=== PATIENT | male | born 1970 ===

== ENCOUNTER 2019-07-26 14:57 | Emergency (ER) | payer OTHER ==
--- OUTSIDE RECORDS SUMMARY | 2019-07-26 15:05 | XMS REPORT | Summary of Care ---
:1970 Author Organization [facility] Address 1 [facility] [place] [address] Care Team Providers Name Role Phone Duy Weber Ángela Primary Care Provider Reason for Visit Reason Comments Follow Up 2 wk f/u left knee. Patient states that the left knee is still painful. Patient states that the injection helped, although, the pain came back last week. Encounter Details Date Type Department Care Team Description 06/26/2019 Office Visit [facility] Aviva Fabian, Primary osteoarthritis - [place] RPA-C of left knee (Primary [address] 10 [facility] Dx) [address] [place] [address] [place] [address] [phone] Allergies No Known Allergiesdocumented as of this encounter (statuses as of 06/26/2019) Medications Medication Sig Dispensed Refills Start Date End Date Status ibuprofen (MOTRIN) Take 800 mg by mouth 0 Active 800 MG Oral DAILY. Indications: TabIndications: pt pt takin 1200 mg takin 1200 mg daily daily fluticasone-salmeter Take 1 INHL by 1 Inhaler 5 02/24/2018 Active ol diskus (ADVAIR inhalation TWICE DISKUS) 250-50 DAILY. MCG/DOSE Inhalation AEROSOL POWDER, BREATH ACTIVATED albuterol HFA Take 2 Puffs by 5 Inhaler 3 08/29/2018 Active (VENTOLIN) 108 (90 inhalation EVERY Base) MCG/ACT FOUR HOURS Inhalation Aero Soln NEEDED (cough). amLodipine (NORVASC) TAKE 1 TABLET DAILY 90 Tab 3 11/03/2018 Active 5 MG Oral Tab gabapentin Take 1-2 Caps by 120 Cap 3 11/17/2018 Active (NEURONTIN) 300 MG mouth TWICE DAILY. Oral Cap documented as of this encounter (statuses as of 06/26/2019) Active Problems Problem Noted Date Primary osteoarthritis of left knee 06/26/2019 Sciatica of left side 05/19/2018 Tear of medial meniscus of right knee, current, subsequent encounter 2017 Current tear of lateral cartilage or meniscus of knee 12/14/2017 Left wrist pain 04/28/2017 Essential hypertension 03/09/2017 Traumatic tear of medial meniscus of right knee 02/22/2017 Tear of medial meniscus of left knee, current 01/29/2017 Traumatic tear of medial meniscus of left knee 01/18/2017 Left elbow pain 12/29/2016 Chronic pain of left knee 12/29/2016 Lateral epicondylitis of left elbow 12/29/2016 BMI 30.0-30.9,adult 11/22/2012 Overview: sustained wt reduction with portion control and sustained routine exercise. Set realistic goal of 1# wt reduction /week set 10 week goals. Tobacco use disorder 12/15/2006 Overview: Began age 12 Moderate persistent asthma without complication 12/15/2006 Overview: pfts done 1990s [facility] Other tear of cartilage or meniscus of knee, current 03/31/2005 documented as of this encounter (statuses as of 06/26/2019) Resolved Problems Problem Noted Date Resolved Date Thigh pain, musculoskeletal, left 03/08/2018 11/17/2018 Acute pain of left knee 12/29/2016 03/09/2017 Sprain of lumbar region 08/03/2012 09/04/2016 Sprain of sacrum 07/27/2012 09/04/2016 Multiple sclerosis 12/15/2006 07/31/2010 Overview: Dx approx 20 years ago documented as of this encounter (statuses as of 06/26/2019) Immunizations Name Administration Dates Next Due Depo Medrol (40mg) 12/30/2009 documented as of this encounter Social History Tobacco Use Types Packs/Day Years Used Date Current Every Day Smoker Cigarettes 1 25 Smokeless Tobacco: Former User Chew Comments: 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 Sex Assigned at Date Recorded Not on file Job Start Date Occupation Industry Not on file Not on file Not on file Travel History Travel Start Travel End No recent travel history available. documented as of this encounter Last Filed Vital Signs Vital Sign Reading Time Taken Comments Blood Pressure 140/87 06/26/2019 8:13 AM EST Pulse 87 06/26/2019 8:13 AM EST Temperature - - Respiratory Rate - - Oxygen Saturation - - Inhaled Oxygen Concentration - - Weight 111.1 kg (245 lb) 06/26/2019 8:13 AM EST Height 180.3 cm (5' 11") 06/26/2019 8:13 AM EST Body Mass Index 34.17 06/26/2019 8:13 AM EST documented in this encounter Progress Notes Aviva Fabian RPA-C - 06/26/2019 8:15 AM EST Name: Daniel Mata : 1970 Date of Service: 06/26/2019 Referring Provider: Aviva Fabian Primary Care Provider: Duy Weber Chief Complaint Patient presents with Follow Up 2 wk f/u left knee. Patient states that the left knee is still painful. Patient states that the injection helped, although, the pain came back last week. History of Present Illness: Daniel Mata is a 48-y.o. male who presents for a follow up of his Left knee pain.The patient states they are doing fairly well. Received a cortisone injection at his last visit . States it did help some. Pain still there, but better. 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 Lazcano, partial menisectomy IN FEMUR/KNEE SURG UNLISTED Left 06/23/2017 Dr. Lazcano IN KNEE SCOPE,MED/LAT MENISECTOMY Right 02/02/2018 Procedure: ARTHROSCOPY KNEE/RIGHT KNEE MEDIAL MENISCUS TEAR Last case of the day.; Surgeon: Lalo Lazcano MD; Location: [facility] MAIN OR TONSILLECTOMY Current Outpatient Medications Medication Sig albuterol HFA (VENTOLIN) 108 (90 Base) MCG/ACT Inhalation Aero Soln Take 2 Puffs by inhalation EVERY FOUR HOURS NEEDED (cough). amLodipine (NORVASC) 5 MG Oral Tab TAKE 1 TABLET DAILY fluticasone-salmeterol diskus (ADVAIR DISKUS) 250-50 MCG/DOSE Inhalation AEROSOL POWDER, BREATH ACTIVATED Take 1 INHL by inhalation TWICE DAILY. gabapentin (NEURONTIN) 300 MG Oral Cap Take 1-2 Caps by mouth TWICE DAILY. ibuprofen (MOTRIN) 800 MG Oral Tab Take 800 mg by mouth DAILY. Indications: pt takin 1200 mg daily No current facility-administered medications for this visit. . 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 Drug use: No Sexual activity: Yes Partners: Female Lifestyle Physical activity: Days per week: Not on file Minutes per session: Not on file Stress: Not on file Relationships Social connections: Talks on phone: Not on file Gets together: Not on file Attends taoism service: Not on file Active member of club or organization: Not on file Attends meetings of clubs or organizations: Not on file Relationship status: Not on file Intimate partner violence: Fear of current or ex partner: Not on file Emotionally abused: Not on file Physically abused: Not on file Forced sexual activity: Not on file Other Topics Concern Back Care Not Asked Bike Helmet Not Asked Blood Transfusions No Caffeine Concern Not Asked Exercise Not Asked Comment: 2mile run sits ups/push ups Hobby Hazards Not Asked International Travel Not Asked Service Not Asked Occupational Exposure Not Asked Seat Belt Not Asked Self-Exams Not Asked Sleep Concern Not Asked Special Diet Not Asked Stress Concern Not Asked Weight Concern Not Asked Social History Narrative . 4 children. 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 Pets: dogs. Family History Problem Relation Age of Onset Breast Cancer Mother Cirrhosis Father Physical Examination: BP 140/87 | Pulse 87 | Ht 5' 11" (1.803 m) | Wt 245 lb (111.1 kg) | BMI 34.17 kg/m Patient was examined in the supine position. He has a Negative effusion. Patient has extension 0, flexion 120. Patient has tenderness on palpation of the medial joint line. Patient has not tenderness on palpation of the lateral joint line. Patient walks without an antalgic gait with respect to the Left extremity. X-Ray: No new xray's were obtained today. Impression: 1. Primary osteoarthritis of left knee Plan: He has done physical therapy and had a cortisone injection. Will seek approval for 3 Euflexxainjections for the left knee. All questions were answered today. Follow up: Author: AUGUSTINE Tran 06/26/2019 09:04 documented in this encounter Plan of Treatment Health Maintenance Due Date Last Done Comments PNEUMOCOCCAL 0-64 YRS (1 of 1976 1 - PPSV23) DEPRESSION SCREENING 09/07/2018 09/07/2017 DIABETES SCREENING 12/13/2019 12/12/2018, 09/04/2016, 09/04/2016, Additional history exists LIPID DISORDER SCREENING 12/13/2019 12/12/2018, 09/04/2016, 07/31/2010, Additional history exists HPV IMMUNIZATION SERIES Aged Out No longer eligible based on patient's age to complete this topic MENINGOCOCCAL VACCINE IMM Aged Out No longer eligible based on patient's age to complete this topic documented as of this encounter Goals Goal Patient Goal Associated Recent Patient-Stated? Author Type Problems Progress Blood Pressure Blood Pressure 140/87 No Tia, < 140/90 (06/26/2019 Duy Motta, 8:13 AM EST) Note: This is an individualized treatment (blood pressure) goal for Daniel Mata: Displayed above (on the left) is your goal for blood pressure control. Your most recent blood pressure is also shown above, on the right. You should try to achieve blood pressures that are lower than your goal listed above (on the left). Smoking Cessation COPD Duy Menjivar MD Note: This is an individualized treatment (COPD) goal for Daniel Mata: Quit smoking immediately! Your provider has information and resources that may help you to quit. Keep immunizations current Lifestyle Duy Menjivar MD Note: This is an individualized lifestyle goal for Daniel Mata: Please be sure to keep up-to-date on recommended immunizations. For example, this would include a yearly influenza vaccine. Immunization status can be seen by looking at the Health Maintenance sections of your e[facility], Plan of Care, and any After Visit Summaries. Weight loss vs. 18 mo Lifestyle 13 (06/26/2019 8:13 AM Duy Menjivar MD max (lbs) >= 10 EST) Note: This is an individualized lifestyle goal for Daniel Mata: Your body mass index (BMI) is more than 30. You should lose weight. A reasonable starting goal is to lose 10 pounds. Displayed above is how many pounds you have lost thus far towards your 10 pound weight loss goal. Take all prescribed medications as Self-management Duy Menjivar MD directed Note: This is an individualized self-management goal for Daniel Mata: Please take all prescribed medications as directed. 1. Do not skip doses. If you cannot afford your medications, talk with your doctor. 2. Use a pill reminder system such as a pill box if needed. Your pharmacist can help you with this. 3. Contact your Pharmacy 5 days before your medication runs out. If you cannot take your medications for any reasons, talk with your doctor. 4. Please bring all of your medication bottles and inhalers (or a list of all your medications/inhalers) with you to every visit. Potential barriers to meeting all of your care plan goals will continue to be addressed on an ongoing basis. documented as of this encounter Results Not on filedocumented in this encounter Visit Diagnoses Diagnosis Primary osteoarthritis of left knee - Primary Primary localized osteoarthrosis, lower leg documented in this encounter Guarantor Name Account Type Relation to Date of Phone Billing Address Patient Daniel Mata Personal/Famil 1970 [address] [facility] (Home) [phone] [place], [place] (Work) [address] documented as of this encounter Advance Directives Code Status Date Activated Date Inactivated Comments Full Code 02/10/2017 9:11 AM 02/10/2017 1:41 PM Does patient have decision making capacity? yes Order discussed with: Patient I discussed all options and patient/surrogate requested and agreed to: Full Code
--- OUTSIDE RECORDS SUMMARY | 2019-07-26 15:05 | XMS REPORT | Summary of Care ---
:1970 Author Organization [facility] Address 1 [facility] [place] [address] Care Team Providers Name Role Phone Duy Weber Ángela Primary Care Provider Reason for Visit Reason Comments Follow Up #1 Euflexxa left knee. Encounter Details Date Type Department Care Team Description 07/18/2019 Office Visit [facility] Aviva Fabian, Primary osteoarthritis - [place] RPA-C of left knee (Primary [address] Dx) [address] [place] [address] [place] [address] [phone] Allergies No Known Allergiesdocumented as of this encounter (statuses as of 07/18/2019) Medications Medication Sig Dispensed Refills Start Date [...] 300 MG mouth TWICE DAILY. Oral Cap Hospital, Clinic, or Other Ordered Dose Route Frequency Start Date End Date Status Facility Administered Medication Sodium Hyaluronate 20 2 mL IX Q7DAYS 07/18/2019 08/08/2019 Active MG/2ML SOSY (Ordered as: EUFLEXXA)Indications: Osteoarthritis of the Knee documented as of this encounter (statuses as of 07/18/2019) Active Problems Problem Noted Date Primary osteoarthritis [...] without complication 12/15/2006 Overview: pfts done 1990s [facility] Other tear of cartilage or meniscus of knee, current 03/31/2005 documented as of this encounter (statuses as of 07/18/2019) Resolved Problems Problem Noted Date Resolved Date Thigh pain, musculoskeletal, left 03/08/2018 11/17/2018 Acute pain of left knee 12/29/2016 03/09/2017 Sprain of lumbar region 08/03/2012 09/04/2016 Sprain of sacrum 07/27/2012 09/04/2016 Multiple sclerosis 12/15/2006 07/31/2010 Overview: Dx approx 20 years ago documented as of this encounter (statuses as of 07/18/2019) Immunizations Name Administration Dates Next Due Depo [...] Sign Reading Time Taken Comments Blood Pressure 131/86 07/18/2019 9:11 AM EST Pulse 84 07/18/2019 9:11 AM EST Temperature - - Respiratory Rate - - Oxygen Saturation - - Inhaled Oxygen Concentration - - Weight 111.1 kg (245 lb) 07/18/2019 9:11 AM EST Height 180.3 cm (5' 11") 07/18/2019 9:11 AM EST Body Mass Index 34.17 07/18/2019 9:11 AM EST documented in this encounter Progress Notes Aviva Fabian RPA-C - 07/18/2019 9:15 AM EST PATIENT:Daniel Mata : 1970 DATE OF SERVICE: 07/18/2019 CHIEF COMPLAINT: Euflexxa injection number 1 of 3, left knee. The patients left knee was sprayed with ethyl chloride and prepped with betadine. 2 ml of Euflexxa was injected under the superior aspect of the left patella. The patient tolerated the procedure well without complications. The wound was dressed with a band aid. IMPRESSION: ICD-9-CM ICD-10-CM 1. Primary osteoarthritis of left knee 715.16 M17.12 1. DJD left knee. 2. Euflexxa injection number 1 of 3 left knee. PLAN: Patient will follow up weekly for remaining injections. AUTHOR: AUGUSTINE Tran 07/18/2019 documented in this encounter Plan of Treatment Date Type Specialty Care Team Description 07/25/2019 Office [facility] RPA-C [address] [place] [address] [phone] 08/01/2019 Office Visit [facility] Fabian, RPA-C [address] [place] [address] [phone] Name Type Priority Associated Diagnoses Order Schedule INJECTION, JOINT Procedures Routine Primary osteoarthritis of Ordered: SHOUDLER HIP KNEE OR left knee BURSA Health Maintenance Due Date Last Done Comments [...] Type Problems Progress Blood Pressure Blood Pressure 131/86 No [place], < 140/90 (07/18/2019 Duy Motta, 9:11 AM EST) Note: This is an individualized [...] Weight loss vs. 18 mo Lifestyle 13 (07/18/2019 9:11 AM Duy Menjivar MD max (lbs) >= [...] osteoarthrosis, lower leg documented in this encounter Administered Medications Medication Order MAR Action Action Date Dose Rate Site Sodium Hyaluronate 20 MG/2ML Given 07/18/2019 9:19 AM EST 2 mL Knee - Left SOSY (Ordered as: EUFLEXXA) 2 mL, Intra-articular, Q7DAYS, 3 doses, First dose on Wed07/18/19 at 1020, Last dose on Wed08/01/19 at 1020 documented in this encounter Guarantor Name Account Type Relation to Date of Phone Billing Address Patient Daniel Mata Personal/Famil 1970 [phone] [address] [facility] (Home) [address] [phone] [place], [place] (Work) [address] documented as of this encounter Advance Directives Code Status Date Activated Date Inactivated Comments Full Code 02/10/2017 9:11 AM 02/10/2017 1:41 PM Does patient have decision making capacity? yes Order discussed with: Patient I discussed all options and patient/surrogate requested and agreed to: Full Code
--- OUTSIDE RECORDS SUMMARY | 2019-07-26 15:05 | XMS REPORT | Summary of Care ---
:1970 Author Organization [facility] Address 1 [facility] [place] [address] Care Team Providers Name Role Phone Duy Weber Ángela Primary Care Provider Reason for Visit Reason Comments Injection Patient here for #2 euflexxa left knee. Encounter Details Date Type Department Care Team Description 07/25/2019 Office Visit [facility] Aviva Fabian, Primary osteoarthritis - [place] RPA-C of left knee (Primary [address] Dx) [address] [place] [address] [place] [address] [phone] Allergies No Known Allergiesdocumented as of this encounter (statuses as of 07/25/2019) Medications Medication Sig Dispensed Refills Start Date [...] as of this encounter (statuses as of 07/25/2019) Active Problems Problem Noted Date Primary osteoarthritis [...] asthma without complication 12/15/2006 Overview: pfts done [address] [place] [address] Other tear of cartilage or meniscus of knee, current 03/31/2005 documented as of this encounter (statuses as of 07/25/2019) Resolved Problems Problem Noted Date Resolved Date Thigh pain, musculoskeletal, left 03/08/2018 11/17/2018 Acute pain of left knee 12/29/2016 03/09/2017 Sprain of lumbar region 08/03/2012 09/04/2016 Sprain of sacrum 07/27/2012 09/04/2016 Multiple sclerosis 12/15/2006 07/31/2010 Overview: Dx approx 20 years ago documented as of this encounter (statuses as of 07/25/2019) Immunizations Name Administration Dates Next Due Depo [...] Sign Reading Time Taken Comments Blood Pressure - - Pulse - - Temperature - - Respiratory Rate - - Oxygen Saturation - - Inhaled Oxygen Concentration - - Weight 111.1 kg (245 lb) 07/25/2019 9:03 AM EST Height 180.3 cm (5' 11") 07/25/2019 9:03 AM EST Body Mass Index 34.17 07/25/2019 9:03 AM EST documented in this encounter Progress Notes Aviva Fabian RPA-C - 07/25/2019 9:15 AM EST PATIENT:Daniel Mata : 1970 DATE OF SERVICE: 07/25/2019 CHIEF COMPLAINT: Euflexxa injection number 2 of 3, left knee. The patients left knee was sprayed with ethyl chloride and prepped with betadine. 2 ml of Euflexxa was injected under the superior aspect of the left patella. The patient tolerated the procedure well without complications. The wound was dressed with a band aid. IMPRESSION: ICD-9-CM ICD-10-CM 1. Primary osteoarthritis of left knee 715.16 M17.12 INJECTION, JOINT SHOUDLER HIP KNEE OR BURSA 1. DJDleft knee. 2. Euflexxa injection number2 of 3 left knee. PLAN: Patient will follow up weekly for remaining injections. AUTHOR: AUGUSTINE Tran 07/25/2019 documented in this encounter Plan of Treatment Date Type Specialty Care Team Description 08/01/2019 Office Visit [facility] Fab[facility] RPA-C [address] [place] [address] [phone] Name Type Priority Associated Diagnoses Order Schedule INJECTION, JOINT Procedures Routine Primary osteoarthritis of Ordered: 12/ 10/2018 SHOUDLER HIP KNEE OR left knee BURSA [...] Progress Blood Pressure Blood Pressure 131/86 No Tia, < 140/90 (07/18/2019 Duy Motta, 9:11 AM [...] Weight loss vs. 18 mo Lifestyle 13 (07/25/2019 9:03 AM Duy Menjivar MD max (lbs) >= [...] Rate Site Sodium Hyaluronate 20 MG/2ML Given 07/25/2019 9:07 AM EST 2 mL Knee - Left SOSY (Ordered as: EUFLEXXA) 2 mL, Intra-articular, Q7DAYS, 3 doses, First dose on Wed07/18/19 at 1020, Last dose on Wed08/01/19 at 1020 Given 07/18/2019 9:19 AM EST 2 mL Knee - Left documented in this encounter Guarantor Name Account Type Relation to Date of Phone Billing Address Patient Daniel Mata Personal/Famil 1970 [address] [facility] ([address]) [address] [phone] [place], [place] (Work) [phone] documented as of this encounter Advance Directives Code Status Date Activated Date Inactivated Comments Full Code 02/10/2017 9:11 AM 02/10/2017 1:41 PM Does patient have decision making capacity? yes Order discussed with: Patient I discussed all options and patient/surrogate requested and agreed to: Full Code
--- OUTSIDE RECORDS SUMMARY | 2019-07-26 15:05 | XMS REPORT | Summary of Care ---
:1970 Author Organization [facility] Address 1 [facility] [place] [address] Care Team Providers Name Role Phone Duy Weber Ángela Primary Care Provider Reason for Visit Reason Comments Knee Pain left Encounter Details Date Type Department Care Team Description 05/30/2019 Office Visit [facility] - Claudine Etienne, Traumatic tear of [place] Physical PT medial meniscus of Therapy [address] left knee, initial [address] [place] [address] encounter (Primary [address] [phone] Dx) [place] [address] [phone] Allergies No Known Allergiesdocumented as of this encounter (statuses as of 05/30/2019) Medications Medication Sig Dispensed Refills Start Date [...] as of this encounter (statuses as of 05/30/2019) Active Problems Problem Noted Date Sciatica of left side 05/19/2018 Tear of [...] without complication 12/15/2006 Overview: pfts done 1990s [facility] Other tear of cartilage or meniscus of knee, current 03/31/2005 documented as of this encounter (statuses as of 05/30/2019) Resolved Problems Problem Noted Date Resolved Date Thigh pain, musculoskeletal, left 03/08/2018 11/17/2018 Acute pain of left knee 12/29/2016 03/09/2017 Sprain of lumbar region 08/03/2012 09/04/2016 Sprain of sacrum 07/27/2012 09/04/2016 Multiple sclerosis 12/15/2006 07/31/2010 Overview: Dx approx 20 years ago documented as of this encounter (statuses as of 05/30/2019) Immunizations Name Administration Dates Next Due Depo [...] of this encounter Last Filed Vital Signs Not on filedocumented in this encounter Progress Notes Claudine Etienne, PT - 05/30/2019 4:30 PM EDT [facility] Outpatient Physical Therapy [facility] [address] [place] [phone] Treatment Number: 3 Referring Physician: Aviva Fabian Primary Diagnosis: ICD-9-CM ICD-10-CM 1. Traumatic tear of medial meniscus of left knee, initial encounter 836.0 S83.242A Time In: 429 Time Out: 045 Total Session Minutes: 24 Pain at Start of Care: 10/30 Pain at End of Care: 09/01 Subjective Comments: Still struggling with his sciatic pain. Pain goes to lateral L knee. Knee pain as been better, was working on the ladder a lot today. Interventions: Manual Therapy (04687) Soft Tissue Mobilization: Manual Tissue Mobilization Soft Tissue Mobilization Details: hamstring with biofreeze PROM: working into flexion PROM Details: large change 104-124 Total Minutes (All Manual Therapy): 25 Modalities Modalities Needed?: Ultrasound Ultrasound (37542) Reason for Use: promote healing Body Area: medial joint line L knee Frequency: 1.0 MHz Frequency Description: Continuous Intensity: .8cm2 Total Minutes: 5 minutes Assessment: Patient responds well to DTM to lateral hamstring and proximal gastroc followed by kneeflexion stretching. His sciatic pain also centralized and remained better upon standing after prone lying. Patient also reports ongoing difficulty in prolonged standing, squatting, crouching. SkilledPhysical Therapy services are required to address ongoing functional and objective limitations/impairments including decrease L knee ROM. Plan for Next Visit: Will resume strengthening (squats, SLS, SLR, hip strengthening) when sciatic pain resolves. Total UNTIMED Code Treatment Minutes: Total TIMED Code Treatment Minutes: 30 Total Treatment Minutes: 30 Author: Claudine Etienne, PT 05/30/2019 16:54 documented in this encounter Plan of Treatment Date Type Specialty Care Team Description 06/09/2019 Office Visit Orthopedics Aviva Fabian Omari, RPA-C [address] [place] [address] [phone] Health Maintenance Due Date Last Done Comments [...] Type Problems Progress Blood Pressure Blood Pressure 139/84 Mena Weber, < 140/90 (04/28/2019 Duy Motta, 3:37 PM EDT) Note: This is an individualized treatment (blood [...] Weight loss vs. 18 mo Lifestyle 13 (04/28/2019 3:37 PM Duy Menjivar MD max (lbs) >= 10 EDT) Note: This is an individualized lifestyle goal for Daniel Nicholas Mata: Your body mass index (BMI) is [...] filedocumented in this encounter Visit Diagnoses Diagnosis Traumatic tear of medial meniscus of left knee, initial encounter - Primary documented in this encounter Guarantor Name Account Type Relation to Date of Phone Billing Address Patient Daniel Mata Personal/Famil 1970 [address] ([address]) [address] [phone] [place], [place] (Work) [address] documented as of this encounter Advance Directives Code Status Date Activated Date Inactivated Comments Full Code 02/10/2017 9:11 AM 02/10/2017 1:41 PM Does patient have decision making capacity? yes Order discussed with: Patient I discussed all options and patient/surrogate requested and agreed to: Full Code
--- OUTSIDE RECORDS SUMMARY | 2019-07-26 15:05 | XMS REPORT | Summary of Care ---
:1970 Author Organization [facility] Address 1 [facility] [place] [address] Care Team Providers Name Role Phone Duy Weber Primary Care Provider Reason for Visit Reason Comments Follow Up F/U left knee - meniscus tear. Patient states that his left knee is not doing too bad, hurts now and then. Patient also has sciatic nerve pain, so when that flares up it runs down his left leg aggravating his left knee. Encounter Details Date Type Department Care Team Description 06/09/2019 Office Visit [facility] - Aviva Fabian, Chronic pain of left [place] RPA-C knee (Primary Dx) 10 [facility] [address] [facility] [place] [address] [place] [address] [address] [place] [address] [phone] Allergies No Known Allergiesdocumented as of this encounter (statuses as of 06/09/2019) Medications Medication Sig Dispensed Refills Start Date [...] as of this encounter (statuses as of 06/09/2019) Active Problems Problem Noted Date Sciatica of [...] without complication 12/15/2006 Overview: pfts done 1990s [facility] Other tear of cartilage or meniscus of knee, current 03/31/2005 documented as of this encounter (statuses as of 06/09/2019) Resolved Problems Problem Noted Date Resolved Date Thigh pain, musculoskeletal, left 03/08/2018 11/17/2018 Acute pain of left knee 12/29/2016 03/09/2017 Sprain of lumbar region 08/03/2012 09/04/2016 Sprain of sacrum 07/27/2012 09/04/2016 Multiple sclerosis 12/15/2006 07/31/2010 Overview: Dx approx 20 years ago documented as of this encounter (statuses as of 06/09/2019) Immunizations Name Administration Dates Next Due Depo [...] Sign Reading Time Taken Comments Blood Pressure 141/89 06/09/2019 8:13 AM EDT Pulse 90 06/09/2019 8:13 AM EDT Temperature - - Respiratory Rate - - Oxygen Saturation - - Inhaled Oxygen Concentration - - Weight 111.1 kg (245 lb) 06/09/2019 8:13 AM EDT Height 180.3 cm (5' 11") 06/09/2019 8:13 AM EDT Body Mass Index 34.17 06/09/2019 8:13 AM EDT documented in this encounter Progress Notes Aviva Fabian, AUGUSTINE - 06/09/2019 8:15 AM EDT Name: Daniel Mata : 1970 Date of Service: 06/09/2019 Referring Provider: Melo Primary Care Provider: Duy Weber Chief Complaint Patient presents with Follow Up F/U left knee - meniscus tear. Patient states that his left knee is not doing too bad, hurts now and then. Patient also has sciatic nerve pain, so when that flares up it runs down his left leg aggravating his left knee. History of Present Illness: Daniel Mata is a 48-y.o. male who presents for a follow up of his Left knee pain.The patient states they are doing fairly well. They have been taking the anti inflammatory. They states they have been attending physical therapy. States his sciatica has been flared up so that has been worse than the knee . Past Medical History: Diagnosis Date Arthritis Bursitis [...] ARTHROSCOPY KNEE; Surgeon: Lalo Lazcano MD; Location: [facility] MAIN OR MYRINGOTOMY NEC AL FEMUR/KNEE SURG UNLISTED Left 02/10/2017 Dr. Lazcano, partial menisectomy AL FEMUR/KNEE SURG UNLISTED Left 06/23/2017 Dr. Lazcano AL KNEE SCOPE,MED/LAT MENISECTOMY Right 02/02/2018 Procedure: ARTHROSCOPY KNEE/RIGHT KNEE MEDIAL MENISCUS TEAR Last case of the day.; Surgeon: Lalo Lazcano MD; Location: [facility] MAIN OR TONSILLECTOMY Current Outpatient Medications Medication [...] file Gets together: Not on file Attends restorationist service: Not on file Active member of [...] Asked Social History Narrative . 4 children. 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 Pets: dogs. Family History Problem Relation Age of Onset Breast Cancer Mother Cirrhosis Father Physical Examination: BP 141/89 | Pulse 90 | Ht 5' 11" (1.803 m) | [...] new xray's were obtained today. Impression: 1. Chronic pain of left knee Plan: The patient was advised of the material risks and benefits of a intraarticular depomedrol injection and verbal informed consent was obtained. The skin was prepped with an betadine sponge and the left knee lateral suprapatellar space was injected with 80 mg of Depo-medrol in 2cc of 1% plain lidocaine and 1cc of 0.5% marcaine. He tolerated the injection well with no associated complications. A band aid was applied to the injection site. Possible side effects were discussed as was the use ofice and over the counter Tylenol or ibuprofen for post injection discomfort. he was given the post injection sheet. All questions were answered today. Follow up: Schedule follow-up here in 2 week(s) . Author: AUGUSTINE Tran 06/09/2019 09:52 documented in this encounter Plan of Treatment Date Type Specialty Care Team Description 06/22/2019 Office Visit Orthopedics Aviva Fabian, RPA-C [address] [place] [address] [phone] Health Maintenance Due Date Last Done Comments [...] Type Problems Progress Blood Pressure Blood Pressure 141/89 No Tia, < 140/90 (06/09/2019 Duy Motta, 8:13 AM EDT) Note: This is an individualized treatment [...] Weight loss vs. 18 mo Lifestyle 13 (06/09/2019 8:13 AM Duy Menjivar MD max (lbs) [...] is an individualized self-management goal for Daniel aMta: Please take all prescribed medications as directed. [...] filedocumented in this encounter Visit Diagnoses Diagnosis Chronic pain of left knee - Primary Pain in joint, lower leg documented in this encounter Guarantor Name Account Type Relation to Date of Phone Billing Address Patient Daniel Mata Personal/Famil 1970 [address] [phone] [place], [place] (Work) [address] documented as of this encounter Advance Directives Code Status Date Activated Date Inactivated Comments Full Code 02/10/2017 9:11 AM 02/10/2017 1:41 PM Does patient have decision making capacity? yes Order discussed with: Patient I discussed all options and patient/surrogate requested and agreed to: Full Code
--- NOTE | 2019-07-26 16:04 | UC ---
Back Pain HPI - HPI Summary HPI Summary: 48 yo with hx of spinal stenosis and elevated blood pressure with onset of right sided back pain which woke him from sleep around midnight last night. Pain with some radiation anteriorly, is worsened with movement, and has not responded to use of ibuprofen 1200mg today. No history of renal stones although he does have gout, and he has no hematuria, frequency or dysuria. This is not typical of his usual back pain. He has taken ibuprofen 1200mg daily x yers, and reports that his renal function is normal. - History of Current Complaint Chief Complaint: UCBackPain Stated Complaint: BACK PAIN Time Seen by Provider: 07/26/19 15:53 Hx Obtained From: Patient Onset/Duration: Sudden Onset, Lasting Hours Timing: Constant Severity Initially: Moderate Severity Currently: Moderate Pain Intensity: 8 Back Pain: Is Discrete @ - right Character: Aching, Throbbing Aggravating Factor(s): Movement, Cough Alleviating Factor(s): Rest, OTC Meds Associated Signs And Symptoms: Negative: Swelling, Bruising, Weakness, Numbness , Bladder Incontinence, Bowel Incontinence - Risk Factors AAA Risk Factors: Negative TAD Risk Factors: Negative Cauda Equina Risk Factors: Negative Epidural Abscess Risk Factors: Negative - Allergies/Home Medications Allergies/Adverse Reactions: Allergies Allergy/AdvReac Type Severity Reaction Status Date / Time No Known Allergies Allergy Verified 07/26/19 15:42 Home Medications: Home Medications Acetaminophen [Tylenol Extra Strength] 1,000 mg PO Q6HR 07/26/19 [History Confirmed 07/26/19] Blood Pressure Medication 1 tab PO DAILY 07/26/19 [History Confirmed 07/26/19] Ibuprofen TAB* [Motrin TAB* 600 MG] 1,200 mg PO Q6HR 07/26/19 [History Confirmed 07/26/19] PMH/Surg Hx/FS Hx/Imm Hx - Additional Past Medical History Additional PMH: gout Previously Healthy: Yes Cardiovascular History: Hypertension - for 3 years. - Surgical History Surgical History: Yes Surgery Procedure, Year, and Place: bilateral knees - Family History Known Family History: Positive: Cardiac Disease - brother has had DC, GF of DC, Hypertension - mother - Social History Occupation: Employed Full-time Alcohol Use: Occasionally Substance Use Type: None Smoking Status (MU): Heavy Every Day Tobacco Smoker Review of Systems All Other Systems Reviewed And Are Negative: Yes Constitutional: Positive: Negative Skin: Positive: Rash Eyes: Positive: Negative ENT: Positive: Negative Respiratory: Positive: Negative Cardiovascular: Positive: Other - hx of hypertension x 3 years, treated with amlodipine. Gastrointestinal: Negative: Abdominal Pain Genitourinary: Positive: Negative Motor: Positive: Negative Neurovascular: Positive: Negative Musculoskeletal: Positive: Negative Neurological: Positive: Negative Psychological: Positive: Negative Is Patient Immunocompromised?: No Physical Exam Triage Information Reviewed: Yes Appearance: Well-Appearing, Pain Distress - mild to moderate. Vital Signs: Initial Vital Signs Temp 99.3 F 07/26/19 15:37 Pulse 90 07/26/19 15:37 Resp 16 07/26/19 15:37 Pulse Ox 97 07/26/19 15:37 ENT: Positive: Pharynx normal Neck: Positive: Supple, Nontender, No Lymphadenopathy Respiratory: Positive: Lungs clear, Normal breath sounds Cardiovascular: Positive: RRR, No Murmur Abdomen Description: Positive: Nontender, No Organomegaly, Soft, CVA Tenderness (R). Negative: CVA Tenderness (L) Musculoskeletal Exam: Other - No spinal tenderness to palpation. With forward bending, pain in the right paraspinals. Full range of motion in lumbar spine. Musculoskeletal: Positive: Strength Intact Neurological: Positive: Alert, Muscle Tone Normal Psychological Exam: Normal Skin Exam: Other - he has a nickel sized erythematous patch on the right paraspinal area T10 dermatome, slightly raised. He has no other patches along the dermatome, but does have a few scattered papules on the back. Diagnostics - Laboratory Lab Results: UA negative. Back Pain Course/Dx - Course Course Of Treatment: possible herpes zoster T10 dermatome, less likely renal stones. will initiate treatment based on the rash, use gabapentin for pain. He has follow up at [facility] in 2 days; discussed imaging if pain fails to respond to treatment. - Differential Dx/Diagnosis Differential Diagnosis/HQI/PQRI: Herniated Disc, Renal Colic, Other - herpes zoster. Provider Diagnosis: Herpes zoster Discharge ED - Sign-Out/Discharge Documenting (check all that apply): Patient Departure All imaging exams completed and their final reports reviewed: No Studies - Discharge Plan Condition: Stable Disposition: HOME Prescriptions: Gabapentin 300 mg PO BID PRN #60 capsule PRN Reason: Pain - Moderate Valacyclovir HCl [Valacyclovir] 1,000 mg PO TID #21 tab Patient Education Materials: Shingles (ED) Referrals: Aliza Velásquez MD [Primary Care Provider] - Additional Instructions: Based on the pain pattern and the patch of redness on the right side, treatment for presumed shingles is being initiated. Please take 2 doses of antiviral today. The medication can cause mild headache and nausea as a side effect, but is usually very well tolerated. Use gabapentin for pain control, taking 300mg twice daily, although the dose could be increased to three times daily provided it does not cause too much sedation. Follow up if you have increasing pain or notice any blood in your urine. The rash typically becomes more obvious over 24 hours if this is the onset of shingles, although use of the antiviral suppresses this to some degree, Continue ibuprofen for pain, and you can also use acetaminophen 650mg every 6 hours in addition for control of pain. Follow up as arranged on Wednesday with your provider at [facility]. - Billing Disposition and Condition Condition: STABLE Disposition: Home
== END 2019-07-26 17:00 | disposition home or self-care (01) ==
LOC: UCEAST 14:57
DX: B02.9 Zoster without complications (principal); M10.9 Gout, unspecified; I10 Essential (primary) hypertension; F17.290 Nicotine dependence, other tobacco product, uncomplicated; Z79.899 Other long term (current) drug therapy
CPT/HCPCS: 81003; 99202; G0463